=== PATIENT | female | born 1990 | race Caucasian/White ===

== ENCOUNTER 2019-04-02 10:19 | Emergency (ER) | payer OTHER ==
[~2019-04-02] VITALS: Ht 170.2 cm; Wt 72.6 kg
[2019-04-02 10:29] VITALS: BP 125/84
--- NOTE | 2019-04-02 10:35 | NUR ---
pt arrived to ed c/o va bleeding x tuesday. pt also wants to get std check. pt states she feels dysuria, and has blood in urine, she also states she had a foul smelling discharge a week ago. denies any fever,n,v, or flank pain. nka.
--- NOTE | 2019-04-02 10:35 | NUR ---
Patient ambulated to bed 2. RN evaluating patient at bedside.
[2019-04-02 11:11] LABS: APPEARANCE,URINE CLEAR (CLEAR); BILIRUBIN,URINE NEGATIVE (NEGATIVE); BLOOD, URINE 2+ (NEGATIVE); COLOR,URINE YELLOW (YELLOW); LEUKOCYTE ESTERASE ,URINE NEGATIVE (NEGATIVE); NITRITE, URINE NEGATIVE (NEGATIVE); UGLUCOSE NEGATIVE (NEGATIVE)
[2019-04-02 11:30] LABS: RBC,URINE 11-20 (MOD) /HPF (0-5); WBC,URINE 0-5 /HPF (0-5)
[2019-04-02 12:12] VITALS: BP 125/84
--- NOTE | 2019-04-02 12:12 | NUR ---
Patient discharged with v/s stable. Written and verbal after care instructions given and explained. Patient verbalized understanding. Ambulatory with steady gait. All questions addressed prior to discharge. Advised to follow up with PMD.
[2019-04-04 21:50] LABS: CHLAMYDIA TRACHOMATIS AMP DNA POSITIVE (NEGATIVE)
== END 2019-04-02 12:12 | disposition home or self-care (01) ==
LOC: MED 10:19
DX: N93.9 Abnormal uterine and vaginal bleeding, unspecified (principal)
CPT/HCPCS: 36415; 81001; 81025; 87086; 87491; 99283